=== PATIENT | male | born 1995 | race Caucasian/White ===

== ENCOUNTER → 2016-09-25 | Outpatient (CLI) | payer OTHER ==
--- NOTE | 2016-09-25 15:53 | US ---
EXAMINATION TYPE: US thyroid st tissue head/neck DATE OF EXAM: 09/25/2016 COMPARISON: NONE CLINICAL HISTORY: R22.1 NECK MASS. Palpable area felt by patient on midline neck for 6 months, states it has gotten bigger, patient has zapata so no obvious skin changes seen. No difficulty swallowing. Area felt by wastewater technician and it appears to be part of laryngeal prominence, no obvious other palpable abnormality felt. Scanned midline and just adjacent to area felt and no abnormality seen. IMPRESSION: No sonographic abnormality to correspond with the patient's palpable abnormality.
== END | disposition home or self-care (01) ==
LOC: RADUSWWP 14:55
PROVIDERS: ATTEND Family Medicine
DX: R22.1 Localized swelling, mass and lump, neck (principal)
CPT/HCPCS: 76536

== ENCOUNTER 2021-01-11 20:58 | Inpatient (IN) | payer MEDICAID, OTHER ==
--- NOTE | 2021-01-11 22:34 | ED ---
Psych HPI - General Chief Complaint: Psychiatric Symptoms Stated Complaint: Mental Health Time Seen by Provider: 01/11/21 21:55 Source: patient, family Mode of arrival: ambulatory - History of Present Illness MD Complaint: feels depressed -: unknown Associated Psychiatric Symptoms: depression History of same: Yes Quality: constant Improves With: none Worsens With: none - Related Data Previous Rx's Medication Instructions Recorded Acetaminophen Tab [Tylenol] 650 mg PO Q4HR PRN tab 01/16/21 DULoxetine HCL [Cymbalta] 60 mg PO DAILY 60 Days capsule 01/16/21 Metoprolol Succinate (ER) [Toprol 100 mg PO DAILY 30 Days tablet 01/16/21 XL] Mirtazapine [Remeron] 15 mg PO HS 30 Days tab 01/16/21 amLODIPine [Norvasc] 10 mg PO DAILY 30 Days tab 01/16/21 Allergies Allergy/AdvReac Type Severity Reaction Status Date / Time No Known Allergies Allergy Verified 01/11/21 21:04 Review of Systems ROS Statement: Those systems with pertinent positive or pertinent negative responses have been documented in the HPI. ROS Other: All systems not noted in ROS Statement are negative. Constitutional: Denies: fever, chills Respiratory: Denies: cough, dyspnea Cardiovascular: Denies: chest pain, palpitations Gastrointestinal: Denies: abdominal pain, vomiting Genitourinary: Denies: dysuria, hematuria Musculoskeletal: Denies: back pain Skin: Denies: rash Psychiatric: Reports: depression, suicidal thoughts. Denies: anxiety, auditory hallucinations, visual hallucinations, homicidal thoughts Past Medical History Past Medical History: No Reported History History of Any Multi-Drug Resistant Organisms: None Reported Past Surgical History: No Surgical Hx Reported Past Psychological History: Anxiety, Depression Smoking Status: Current some day smoker Past Alcohol Use History: None Reported Past Drug Use History: Marijuana General Exam Limitations: no limitations General appearance: alert, in no apparent distress Head exam: Present: atraumatic, normocephalic Eye exam: Present: normal appearance. Absent: scleral icterus, conjunctival injection Neck exam: Present: normal inspection Respiratory exam: Present: normal lung sounds bilaterally. Absent: respiratory distress, wheezes, rales, rhonchi, stridor Cardiovascular Exam: Present: regular rate, normal rhythm, normal heart sounds. Absent: systolic murmur, diastolic murmur, rubs, gallop GI/Abdominal exam: Present: soft. Absent: distended, tenderness Extremities exam: Present: normal inspection, normal capillary refill. Absent: pedal edema Back exam: Present: normal inspection Neurological exam: Present: alert Psychiatric exam: Present: depressed, flat affect. Absent: agitated, anxious, manic, homicidal ideation, suicidal ideation Skin exam: Present: warm, dry, intact, normal color. Absent: rash Course Vital Signs 01/11/21 21:00 Temperature 98.9 F Pulse Rate 91 Respiratory 22 Rate Blood Pressure 154/90 O2 Sat by Pulse 98 Oximetry Medical Decision Making - Lab Data Result diagrams: 01/12/21 10:31 01/12/21 10:31 Lab Results 01/11/21 01/12/21 01/12/21 Range/Units 21:06 02:55 03:00 Urine Color Yellow Urine Appearance Clear (Clear) Urine pH 5.5 (5.0-8.0) Ur Specific [place] 1.017 (1.001-1.035) Urine Protein Negative (Negative) Urine Glucose (UA) Negative (Negative) Urine Ketones Negative (Negative) Urine Blood Negative (Negative) Urine Nitrite Negative (Negative) Urine Bilirubin Negative (Negative) Urine Urobilinogen <2.0 (<2.0) mg/dL Ur Leukocyte Esterase Negative (Negative) Urine Opiates Screen Not Detected (NotDetected) Ur Oxycodone Screen Not Detected (NotDetected) Urine Methadone Screen Not Detected (NotDetected) Ur Propoxyphene Screen Not Detected (NotDetected) Ur Barbiturates Screen Not Detected (NotDetected) U Tricyclic Antidepress Not Detected (NotDetected) Ur Phencyclidine Scrn Not Detected (NotDetected) Ur Amphetamines Screen Not Detected (NotDetected) U Methamphetamines Scrn Not Detected (NotDetected) U Benzodiazepines Scrn Not Detected (NotDetected) Urine Cocaine Screen Not Detected (NotDetected) U Marijuana (THC) Screen Detected H (NotDetected) Coronavirus (PCR) Not Detected (Not Detectd) Disposition Clinical Impression: Mood disorder Disposition: ADMITTED IP TO THIS [facility] Condition: Stable Is patient prescribed a controlled substance at d/c from ED?: No
[2021-01-12] MEDS ORDERED: haloperidoL 5 MG TAB PO PRN (03:38)
[2021-01-12] MEDS ORDERED: ACETAMINOPHEN TAB 325 MG TAB PO PRN (03:38)
[2021-01-12] MEDS ORDERED: LORazepam 2 MG/ML INJ IM PRN (03:38)
[2021-01-12] MEDS ORDERED: MAG HYDROX/AL HYDROX/SIMETH 30 ML CUP PO PRN (03:38)
[2021-01-12] MEDS ORDERED: HALOPERIDOL LACTATE 5 MG/ML 1 ML VIAL IM PRN (03:38)
[2021-01-12] MEDS ORDERED: MAGNESIUM HYDROXIDE 2,400 MG/10 ML CUP PO PRN (03:38)
[2021-01-12] MEDS ORDERED: LORazepam 1 MG TAB PO PRN (03:38)
[2021-01-12 03:55] LABS: Amphetamine Screen,Urine Not Detected (NotDetected); Barbiturate Screen,Urine Not Detected (NotDetected); Benzodiazepines Screen,Urine Not Detected (NotDetected); Cocaine Screen,Urine Not Detected (NotDetected); Methadone Screen, Urine Not Detected (NotDetected); Opiate Screen,Urine Not Detected (NotDetected); Oxycodone Screen, Urine Not Detected (NotDetected); Phencyclidine Screen,Urine Not Detected (NotDetected); Tricyclic Antidepressant,Urine Not Detected (NotDetected); Urn Cannabinoid Scrn Detected (NotDetected)
[2021-01-12 04:12] LABS: Appearance,Urine Clear (Clear); Bilirubin,Urine Negative (Negative); Blood,Urine Negative (Negative); Color,Urine Yellow; Glucose,Urine (UA) Negative (Negative); Ketones,Urine Negative (Negative); Leukocyte Esterase,Urine Negative (Negative); Nitrite,Urine Negative (Negative); PH, Urine 5.5 (5.0-8.0); Protein,Urine Negative (Negative); Specific Gravity,Urine 1.017 (1.001-1.035); Urobilinogen,Urine <2.0 mg/dL (<2.0)
[2021-01-12] MEDS: ARIPiprazole 5 MG TAB PO SCH (09:55)
[2021-01-12] MEDS: PARoxetine 20 MG TAB PO SCH (09:55)
[2021-01-12] MEDS: amLODIPine 10 MG TAB PO SCH (09:55)
[2021-01-12] MEDS: NICOTINE 14MG/24HR PATCH TRANSDERM SCH (09:55)
[2021-01-12 10:44] LABS: Basophils % (A) 0 %; Eosinophils # (A) 0.1 k/uL (0-0.7); Eosinophils % (A) 1 %; HCT 52.4 % (39.0-53.0); HGB 17.6 gm/dL (13.0-17.5); Lymphocytes # (A) 1.6 k/uL (1.0-4.8); Lymphocytes % (A) 22 %; MCH 30.5 pg (25.0-35.0); MCHC 33.6 g/dL (31.0-37.0); MCV 90.8 fL (80.0-100.0); Mean Platelet Volume 7.2; Monocytes # (A) 0.5 k/uL (0-1.0); Monocytes % (A) 7 %; Neutrophils # (A) 4.9 k/uL (1.3-7.7); Neutrophils % (A) 68 %; Platelet Count 291 k/uL (150-450); RBC 5.78 m/uL (4.30-5.90); RDW 12.2 % (11.5-15.5); WBC 7.2 k/uL (3.8-10.6)
[2021-01-12 11:16] LABS: ALT 13 U/L (4-49); African American GFR (CKD) >90 (>60 ml/min/1.73 sqM); Albumin 4.8 g/dL (3.5-5.0); Anion Gap 9 mmol/L; Bilirubin, Delta 0.4 mg/dL (0.0-0.2); Bilirubin,Unconjugated 0.6 mg/dL (0.0-1.1); Blood Urea Nitrogen 11 mg/dL (9-20); Carbon Dioxide 25 mmol/L (22-30); Chloride 106 mmol/L (98-107); Glucose 100 mg/dL (74-99); Non-African American GFR(CKD) >90 (>60 ml/min/1.73 sqM); Sodium 140 mmol/L (137-145)
[2021-01-12 11:56] LABS: AST 25 U/L (17-59); Alkaline Phosphatase 53 U/L (38-126); Potassium 4.6 mmol/L (3.5-5.1)
--- NOTE | 2021-01-12 13:29 | HP ---
HISTORY AND PHYSICAL DATE OF SERVICE: 01/12/2021 IDENTIFYING DATA: The patient is a 25-year-old male. He resides with his mother and other family members. He presented to the ED for evaluation. CHIEF COMPLAINT: The patient was depressed. He has panic symptoms. He has alcohol and marijuana issues as well. HISTORY OF PRESENTING ILLNESS: The patient was the only person providing information. He was very limited on what he said. Often when I asked him questions, he would give vague response and then make statements such as, "I don't want to say anymore." At other times he would just seem to drift off in his thoughts and not provide information. He notes that currently he is on a combination of Paxil 40 mg a day, Adderall 20 mg twice a day and BuSpar 10 mg twice a day. He was vague about why he is prescribed Adderall. He did make the statement that sometimes with Adderall, it causes him panic, so it is important that he takes BuSpar when he takes Adderall. He notes that he has been very inconsistent in taking his medications. He suggested that he has been on medications for over a year. He said there had been periods in the past where he took medications consistently and felt that they had helped, though he acknowledges in recent months at least that he has probably been off medications more than on. He notes that he gets a depressed mood that has been getting worse over the last month or more. He seemed to be reluctant to talk about what might be precipitating factors. He acknowledges that he gets anxiety and panic symptoms. He says he especially gets panic "when I am off my medications." He stated that "anxiety drove me to come here." He did not give much more information than that. He seemed to suggest that he has intermittent auditory hallucinations and possibly some paranoid delusions. He did not provide much detail. He noted that he had ups and downs in sleep. Energy, motivation and interest seem to be down. He did not describe any past episodes of manic or hypomanic periods. He seemed to suggest that there are some family stress issues, especially with his older brother, who is 2 years older than him. He said that he has had a stressful relationship with his older brother throughout his growing up. They both are in the house with his mother and there seem to continue to be some struggles in that regard. Patient did not provide much details beyond that. He does have significant substance use issues, as noted below. Patient gave indications that he has significant social anxiety problems. He did not give much for details, though made suggestions at different times that his anxiety gets worse when he is around people, and that in general he tends to isolate. The patient is admitted for further evaluation. SUBSTANCE USE HISTORY: Patient was vague about his substance use though made statements that he drinks more alcohol than he should. He seemed to indicate that he might drink about 5 shots at a time when he drinks and that he drinks on a daily basis. He also notes that he smokes marijuana daily. He indicated that he has ideas that the marijuana is also not good for him, though he did not speak to it much more than that. His urine drug screen was positive just for marijuana. He states that he has not been using other abusive substances. PAST MEDICAL HISTORY: Patient reports no chronic or current general health complaints. FAMILY AND SOCIAL HISTORY: He notes that in his growing up in the home was his mother and father. He had a brother 2 years older who had a different father. Also he had a younger brother 7 years younger by the same parents. His parents split up in his early teens. Currently he is living with his mother and his 2 brothers. He is not working currently. He seemed to indicate that he has a GED. He says his main activity around the house is to try to help with house cleaning and maintenance and then otherwise he spends time doing video games. MENTAL STATUS EXAM: Patient sat with some restlessness. He had fair eye contact. He answered questions with brief responses. He spoke in a soft monotone voice. Sometimes his responses were vague. He did not say much. His affect was flat, his mood depressed. He was significantly distressed. He seemed to indicate having some auditory hallucinations. He was not indicating thoughts of harm at the time of this interview. On cognitive exam, he did not make an effort to answer formal cognitive questions. He was oriented and alert. He gave some information that was about recent events that was consistent with what is documented in the medical record. PHYSICAL EXAMINATION: As per medical consultation. ASSESSMENT: This 25-year-old male has depression and social anxiety struggles. Along with this he has significant complications with substance abuse, namely alcohol and marijuana. He also appears to have quite significant issues with general function. Strengths include his willingness to come to the hospital to seek help. Weakness includes poor insight and awareness plus substance use issues. DIAGNOSES: 1. Major depression with psychotic features. 2. Social anxiety disorder. 3. Alcohol dependence and acute alcohol withdrawal. 4. Marijuana dependence and acute marijuana withdrawal. RECOMMENDATIONS: Patient will be admitted for comprehensive medical, psychiatric and psychosocial evaluation. We will engage the patient in individual and group therapeutic activities. It is noteworthy that the patient has been quite inconsistent with psychotropic medications though seemed to indicate some benefit from medications. I will start the patient on Paxil. I will start 20 mg a day, given that he has been off Paxil probably for at least the last few weeks, I would consider going up to 40 mg perhaps by Thursday. In addition, I will start the patient on Abilify 5 mg a day. The aim of Abilify is to help augment his antidepressant. In addition, Abilify may be beneficial to address some apparent auditory hallucinations that the patient is having. Further, Abilify may provide some benefit to reduce physiologic stress response relating to acute substance withdrawal. Patient does have significant substance use issues as a complication to his mood disorder. It is noteworthy that his functioning out in the world seems to be quite impaired. I reviewed medication issues with the patient, including indications and potential side effects. I made mention of metabolics and movement disorder issues as it relates to Abilify, though I kept the discussion limited due to the patient's lack of much engagement in the conversation. There might be consideration for initiating some family sessions to get further input from the patient's mother especially. We will focus on stabilization and discharge planning. ZEYNEP / NATALIE: [id number] /
--- NOTE | 2021-01-12 14:56 | CONS ---
CONSULTATION CHIEF COMPLAINT: Major depression. HISTORY OF PRESENT ILLNESS: This is the first known admission for this young man who has a long-standing history of depression. He lives with his mother and has been followed as an outpatient for depression and has been fairly stable. Apparently, his condition deteriorated and he came in. REVIEW OF SYSTEMS: He denies headaches, chest pain, abdominal pain, nausea, vomiting, fever, chills, cough, etc. Past medical history, family history and personal and social histories are all otherwise unremarkable or noncontributory. He has currently been on Paxil, amlodipine, Adderall and BuSpar. He is not allergic to any medication. He uses marijuana. PHYSICAL EXAMINATION: Blood pressure is 118/69 with a pulse of 70, respirations of 15 and he is afebrile. In general he appeared to be well developed, well nourished and in no distress. Affect was depressed. Skin color is normal. Head, ears, eyes, nose, mouth and throat were normal. Chest is clear. Cardiac exam is normal. Abdomen is soft, nontender. Extremities: Normal. Neurologically he is intact. IMPRESSION: 1. Major depression. 2. History of hypertension. RECOMMENDATIONS: None at this time. MMODL / IJN: [id number] /
[2021-01-12 17:58] LABS: Chol/HDL Ratio 3.49 Ratio; LDL Cholesterol,Calculated 73.8 mg/dL (0.0-131.0)
[2021-01-13] MEDS: amLODIPine 10 MG TAB PO SCH (09:02)
[2021-01-13] MEDS: NICOTINE 14MG/24HR PATCH TRANSDERM SCH (09:02)
[2021-01-13] MEDS: ARIPiprazole 5 MG TAB PO SCH (09:02)
[2021-01-13] MEDS: PARoxetine 20 MG TAB PO SCH (09:02)
--- NOTE | 2021-01-13 16:33 | PN ---
PROGRESS NOTE DATE OF SERVICE: 01/13/2021. CHIEF COMPLAINT: The patient was depressed. He has panic symptoms. He has alcohol and marijuana issues as well. INTERVAL HISTORY: Patient has been doing fair. He had a quiet day yesterday. It is noteworthy that when I talked to him he almost seemed as if he was in a daze. He could barely get words out and was not able to provide any detail about his situation. He seemed to be quite distant in his relatedness. It is noteworthy that yesterday he attended all of the groups. He slept fairly well last night. Today, he has been up. He continues to attend groups. He comes out on the unit. When I talked to him today, he seemed to be somewhat more relatable. He acknowledges that he has trouble talking about his feelings and issues that might be part of his current situation. On the other hand, he seems to be making reasonable effort in groups. In one of the groups, he stated the following "I do not know if it is the mask or the withdrawal. I just do not feel great." That seemed to be a reasonable opening that he made in spite of some of his difficulties. When I talked to him today he was able to say just a little about his family situation. He said he has talked to his mother and says that she wants him to call on a daily basis. He seemed to be uncertain as to whether in fact he could actually call her on a daily basis. It was unclear what his reference was to that. When I asked him about his older brother, the best he was able to say is that essentially the two live under the same roof, but otherwise are very distant from one another. He had acknowledged that his older brother has been a very difficult person for him to relate to. He tolerates his psychotropic medications. MENTAL STATUS: Patient sat with a little restlessness. He gave fair eye contact he answered questions with brief responses. At times, he was a little vague in things he said. It was noteworthy that he seemed to show a little more emotional response in his facial expressions. His affect was somewhat blunted. His mood reserved. There was a sense that he was at least moderately distressed. It was difficult to assess for thought disorder. He denied thoughts of harm. Cognition was clear. ASSESSMENT: I will continue the current diagnosis and treatment plan. I had restarted the patient on Paxil 20 mg a day. I would look to go up to 40 mg a day fairly soon. I also started the patient on Abilify 5 mg a day to augment his antidepressant. I briefly reviewed medication issues with the patient including concerns relating to Abilify as far as metabolics and movement disorder issues. We will focus on stabilization and discharge planning. ZEYNEP / NATALIE: [id number] /
[2021-01-14] MEDS: ARIPiprazole 5 MG TAB PO SCH (08:33)
[2021-01-14] MEDS: PARoxetine 20 MG TAB PO SCH (08:33)
[2021-01-14] MEDS: amLODIPine 10 MG TAB PO SCH (08:33)
[2021-01-14] MEDS: NICOTINE 14MG/24HR PATCH TRANSDERM SCH (08:34)
[2021-01-14] MEDS ORDERED: LORazepam 1 MG TAB PO PRN (11:03)
[2021-01-14] MEDS: DULoxetine HCL 30 MG CAPSULE.DR PO SCH (11:11)
[2021-01-14] MEDS: LORazepam 1 MG TAB PO PRN ×2 (11:11→16:32)
--- NOTE | 2021-01-14 11:21 | P.PN ---
Progress Note - Text Progress Note Date: 01/14/21 Interval History: Patient was seen [wandering the hallways] and was directable and agreeable to speak with travel writer in the office. Patient explained briefly to travel writer why he came into the hospital stating he was feeling very anxious and depressed and having suicidal thoughts. He spoke about using marijuana and also drinking alcohol excessively. He states that he in the past has had indicated alcohol withdrawals and is feeling like he is having mild withdrawal symptoms at this time. He states that he still feeling very depressed and was fairly isolated and had poor eye contact during conversation. He had fairly poor hygiene and grooming. He states that he is going to some of the groups and trying to participate. He claims that he recently bought a car and is planning to do [employer] eats when he goes back home. At this time patient denies any current suicidal or homical ideations, intent or plan. Patient denies any auditory, visual hallucinations and denies any paranoia or delusions. Patient claims that his anxiety is worst now and was agreeable to be switched onto Cymbalta instead. He states that he has poor sleep at night time. Mental Status Exam: General Appearance: [Patient appears to be stated age is alert, directable, and cooperative.] Poor hygiene and grooming. Poor eye contact. Behavior: [Patient is calmly seated without any agitated behavior.] [place] Speech: Patient's speech is fluent and nonpressured. monotone Mood/Affect: Mood is depressed and anxious, affect is congruent and constricted. Suicidality/Homicidality: Patient denies having any suicidal or homicidal ideation intent or plan. Perceptions: Patient denies any visual hallucinations [and denies any auditory hallucinations] Though content/process: [There is no evidence of any delusional thought content and thought process is linear and goal-directed.] concrete Memory and concentration: AOX3, grossly intact for the purposes of this session Judgment and insight: Improving mildly Assessment Major depressive disorder, recurrent, severe without psychotic features Social anxiety disorder Cannabis use disorder Alcohol use disorder, currently in withdrawal Plan: -Patient continues to meet criteria for inpatient psychiatric admission for symptom stabilization and safety. Patient has signed [adult voluntary form and] [medication consent] and was placed in patient's chart. -Medications: Discontinued Paxil and replaced with Cymbalta 30 mg daily for mood/anxiety. Consider restarting BuSpar tomorrow. Added 25 mg trazodone daily at bedtime for insomnia/mood. Discontinue Abilify. -When necessary Ativan and Haldol for agitation/aggression. -NRT - not needed as patient does not smoke -SW on board for discharge planning. Encouraged the patient to participate in milieu. likely discharge back home in 2-3 days.
[2021-01-14] MEDS: METOPROLOL SUCCINATE (ER) 100 MG TAB.ER.24H PO SCH (13:36)
[2021-01-14] MEDS ORDERED: amLODIPine 10 MG TAB PO SCH (18:15)
--- NOTE | 2021-01-14 19:19 | PN ---
PROGRESS NOTE CHIEF COMPLAINT: Tachycardia. HISTORY OF PRESENT ILLNESS: This gentleman has developed tachycardia. He is on amlodipine. He denies any chest pain or shortness of breath. IMPRESSION: Sinus tachycardia. PLAN: Monitor his pulse rate. If necessary, a beta juan may be added. ZEYNEP / NATALIE: [id number] /
[2021-01-14] MEDS ORDERED: traZODone HCL 50 MG TAB PO SCH (21:00)
[2021-01-15] MEDS: DULoxetine HCL 30 MG CAPSULE.DR PO SCH (09:02)
[2021-01-15] MEDS: METOPROLOL SUCCINATE (ER) 100 MG TAB.ER.24H PO SCH (09:02)
[2021-01-15] MEDS: amLODIPine 10 MG TAB PO SCH (09:02)
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
[2021-01-15] MEDS ORDERED: MIRTAZAPINE 15 MG TAB PO SCH (21:00)
[2021-01-16] MEDS: METOPROLOL SUCCINATE (ER) 100 MG TAB.ER.24H PO SCH (08:26)
[2021-01-16] MEDS: amLODIPine 10 MG TAB PO SCH (08:26)
[2021-01-16 08:40] VITALS: BP 149/86; PULSE 110; RESP 16; TEMP 98.1
[2021-01-16] MEDS ORDERED: DULoxetine HCL 60 MG CAPSULE.DR PO SCH (09:00)
--- NOTE | 2021-01-16 10:01 | P.DS ---
Providers Date of admission: 01/12/21 03:34 Expected date of discharge: 01/16/21 Attending physician: Bhavin Franklin MD Consults: 01/12/21 03:38 Consult Physician Routine Consulting Provider: Arturo Posada Consult Reason/Comments: H & P Do you want consulting provider notified?: Yes, Notify in am Primary care physician: Arturo Posada - Discharge Diagnosis(es) (1) Major depressive disorder without psychotic features Current Visit: Yes Status: Acute Priority: High (2) Social anxiety disorder Current Visit: Yes Status: Acute Priority: High (3) Cannabis use disorder, mild, abuse Current Visit: Yes Status: Acute Priority: Medium (4) Alcohol use disorder Current Visit: Yes Status: Acute Priority: Medium Hospital Course: Admission HPI: Admission note was completed by Dr. Haskins "the patient is a 25-year-old male. He resides with his mother and other family members. He presented to the ED for evaluation. The patient was depressed. He has panic symptoms. He has alcohol and marijuana issues as well. The patient was the only person providing information. He was very limited on what he said. Often when I asked him questions, he would give vague responses and then make statements such as "I don't want to say anymore." At other times he would just seemed to drift off in his thoughts and not providing information. He notes that he currently he is on a combination of Paxil 40 mg a day Adderall 20 mg twice a day and BuSpar 10 mg twice a day. She was vague about why he is prescribed Adderall. He did make the statement that sometimes with Adderall it causes him panic, so it is important that he takes BuSpar when he takes Adderall. He notes that he has been very inconsistent in taking his medications. He suggested that he has been on medications for over a year. He said that there had been periods in the past where he took medications consistently and felt that they helped, though he acknowledges in recent months that least that he has probably been off medications more then on. He notes that he gets depressed mood that he has been getting worse over the last month or more. He seemed to be reluctant to talk about what might be precipitating factors. He acknowledges that he gets anxiety and panic symptoms. He says that he especially gets panic, when I'm off my medications." He stated that he "anxiety drove me to come here." He did not give much more information than that. She seemed to suggest that he has intermittent auditory hallucinations and probably some paranoid delusions. He did not provide much detail. He noted that he had ups and downs in his sleep. Energy, motivation and interest seem to be down. He did not describe any past episodes of manic or hypomanic periods. He seemed to suggest that there are some family stress issues, especially with his older brother who is 2 years older than him. He said that he has had stressful relationship with his older brother throughout his growing up. They both are in the house with his mother and there seemed to continue to be some struggles in that regard. Patient did not provide much details beyond that. He does have significant substance abuse issues as noted below. Patient gave indications that he has significant social anxiety problem. He did not give much detail though made suggestions at different times that his anxiety gets worse then he is around people, and that in general he tends to isolate. The patient is admitted for further evaluation." Hospital course: Upon admission to the unit patient was directable and agreeable to commence elvira atment and signed adult voluntary form . Patient got along well with other patients on the unit and followed unit protocol. Patient was compliant with the medications and denied any side effects throughout hospital course. Patient was started on Paxil initially however due to side effect profile this was d/c and replaced with cymbalta and titrated up to a dose of 60 mg daily for mood/anxiety. Patient was also started on Remeron 15 mg daily at bedtime for insomnia/mood/anxiety. patient was also put on ciwa protocol with prn Ativan for etoh withdrawal. Patient spoke of his stressors and engaged in therapy both group and individual. Patient was also seen by medical team for history and physical exam. Throughout the course of the hospitalization patient gradually improved with regards to mood, anxiety, sleep and returned back to their baseline level of functioning. On the day of discharge patient denied any suicidal or homicidal ideations intent or plan denied any auditory or visual hallucinations. Patient endorsed wanting to live for his health and family. The patient claims that there are guns at his fathers place however they are locked in a safe. Patient denied any paranoia and did not endorse any delusions. Patient does have a significant history of substance abuse and was counseled on abstaining from all substances including alcohol and marijuana. Patient was offered however declined inpatient substance-abuse rehab. Patient chose to follow up with [facility] for [facility] therapy and [facility] treatment as an outpatient. Patient was also counseled on the medications and need for regular compliance and was encouraged to follow-up with their outpatient appointment for mental health and also for primary care. Prior to discharge a family meeting will be arranged by social insurance administrator to answer any questions and ensure safety upon discharge. Mental status exam: General Appearance: Patient appears to be unshaven, stated age is alert, directable, and cooperative. Patient is in no acute distress and has improved hygiene and grooming Behavior: Patient is calmly seated without any agitated behavior. Speech: Patient's speech is fluent and nonpressured. monotone Mood/Affect: Patient reports their mood is "better", affect is congruent and constricted Suicidality/Homicidality: Patient denies having any suicidal or homicidal ideation intent or plan. Perceptions: Patient denies any auditory or visual hallucinations. Though content/process: There is no evidence of any delusional thought content and thought process is linear and goal-directed. future oriented Memory and concentration: AOX3, grossly intact for the purposes of this session. Can spell "WORLD" backwards correctly. Judgment and insight: chronically poor, however has improved with guarded prognosis Impression: Major depressive disorder, severe without psychotic features Social anxiety disorder Cannabis use disorder Alcohol use disorder Plan: -Continue with discharge today as patient has improved and stabilized psychiatrically and is not currently an imminent threat to himself and/or others. Patient will remain at chronically elevated risk for harm to self and/or others due to his impulsivity and polysubstance abuse. -Continue medications: Cymbalta 60 mg daily for mood/anxiety. Remeron 15 mg daily at bedtime for mood/anxiety/insomnia. Patient can have BuSpar restarted as an outpatient if he desires. -Patient was counseled on the need for medication compliance and appropriate follow-up at mental health and also primary care for medical issues. Patient verbalized understanding and agreed. -Social work to arrange for and conduct family meeting to ensure safety upon discharge and answer any questions/concerns. Social work also to arrange for patients follow up appointments with [facility] for psychiatric care along with follow up with primary care provider. -Patient counseled on abstaining from recreational drugs and marijuana and alcohol. Was informed/educated on the adverse effects on their physical and mental health. Patient verbally agreed and understood. Patient was offered substance abuse treatment however declined at this time. -Patient was instructed to return to the hospital or seek immediate medical care if their psychiatric or medical symptoms do worsen or reoccur. Allergies Allergy/AdvReac Type Severity Reaction Status Date / Time No Known Allergies Allergy Verified 01/11/21 21:04 Laboratory Results WBC 7.2 k/uL (3.8-10.6) 01/12/21 10:31 RBC 5.78 m/uL (4.30-5.90) 01/12/21 10:31 Hgb 17.6 gm/dL (13.0-17.5) H 01/12/21 10:31 Hct 52.4 % (39.0-53.0) 01/12/21 10:31 MCV 90.8 fL (80.0-100.0) 01/12/21 10:31 MCH 30.5 pg (25.0-35.0) 01/12/21 10:31 MCHC 33.6 g/dL (31.0-37.0) 01/12/21 10:31 RDW 12.2 % (11.5-15.5) 01/12/21 10:31 Plt Count 291 k/uL (150-450) 01/12/21 10:31 MPV 7.2 01/12/21 10:31 Neutrophils % 68 % 01/12/21 10:31 Lymphocytes % 22 % 01/12/21 10:31 Monocytes % 7 % 01/12/21 10:31 Eosinophils % 1 % 01/12/21 10:31 Basophils % 0 % 01/12/21 10:31 Neutrophils # 4.9 k/uL (1.3-7.7) 01/12/21 10:31 Lymphocytes # 1.6 k/uL (1.0-4.8) 01/12/21 10:31 Monocytes # 0.5 k/uL (0-1.0) 01/12/21 10:31 Eosinophils # 0.1 k/uL (0-0.7) 01/12/21 10:31 Basophils # 0.0 k/uL (0-0.2) 01/12/21 10:31 Sodium 140 mmol/L (137-145) 01/12/21 10:31 Potassium 4.6 mmol/L (3.5-5.1) 01/12/21 10:31 Chloride 106 mmol/L (98-107) 01/12/21 10:31 Carbon Dioxide 25 mmol/L (22-30) 01/12/21 10:31 Anion Gap 9 mmol/L 01/12/21 10:31 BUN 11 mg/dL (9-20) 01/12/21 10:31 Creatinine 0.99 mg/dL (0.66-1.25) 01/12/21 10:31 Est GFR (CKD-EPI)AfAm >90 (>60 ml/min/1.73 sqM) 01/12/21 10:31 Est GFR (CKD-EPI)NonAf >90 (>60 ml/min/1.73 sqM) 01/12/21 10:31 Glucose 100 mg/dL (74-99) H 01/12/21 10:[address] Glu mg/dL 97 01/12/21 10:31 Hemoglobin A1c 5.0 % (4.0-6.0) 01/12/21 10:31 Calcium 10.0 mg/dL (8.4-10.2) 01/12/21 10:31 Total Bilirubin 1.0 mg/dL (0.2-1.3) 01/12/21 10:31 Conjugated Bilirubin 0.0 mg/dL (0.0-0.3) 01/12/21 10:31 Unconjugated Bilirubin 0.6 mg/dL (0.0-1.1) 01/12/21 10:31 Delta Bilirubin 0.4 mg/dL (0.0-0.2) H 01/12/21 10:31 AST 25 U/L (17-59) 01/12/21 10:31 ALT 13 U/L (4-49) 01/12/21 10:31 Alkaline Phosphatase 53 U/L (38-126) 01/12/21 10:31 Total Protein 8.0 g/dL (6.3-8.2) 01/12/21 10:31 Albumin 4.8 g/dL (3.5-5.0) 01/12/21 10:31 Triglycerides 109.00 mg/dL (0.00-149.00) 01/12/21 10:31 Cholesterol 134.00 mg/dL (0.00-200.00) 01/12/21 10:31 LDL Cholesterol, Calc 73.8 mg/dL (0.0-131.0) 01/12/21 10:31 VLDL Cholesterol, Calc 21.80 mg/dL (5.00-40.00) 01/12/21 10:31 HDL Cholesterol 38.40 mg/dL (40.00-60.00) L 01/12/21 10:31 Cholesterol/HDL Ratio 3.49 Ratio 01/12/21 10:31 TSH 1.580 mIU/L (0.465-4.680) 01/12/21 10:31 Free T4 1.530 ng/dL (0.800-1.800) 01/12/21 10:31 Urine Color Yellow 01/12/21 03:00 Urine Appearance Clear (Clear) 01/12/21 03:00 Urine pH 5.5 (5.0-8.0) 01/12/21 03:00 Ur Specific Dana 1.017 (1.001-1.035) 01/12/21 03:00 Urine Protein Negative (Negative) 01/12/21 03:00 Urine Glucose (UA) Negative (Negative) 01/12/21 03:00 Urine Ketones Negative (Negative) 01/12/21 03:00 Urine Blood Negative (Negative) 01/12/21 03:00 Urine Nitrite Negative (Negative) 01/12/21 03:00 Urine Bilirubin Negative (Negative) 01/12/21 03:00 Urine Urobilinogen <2.0 mg/dL (<2.0) 01/12/21 03:00 Ur Leukocyte Esterase Negative (Negative) 01/12/21 03:00 Urine Opiates Screen Not Detected (NotDetected) 01/11/21 21:06 Ur Oxycodone Screen Not Detected (NotDetected) 01/11/21 21:06 Urine Methadone Screen Not Detected (NotDetected) 01/11/21 21:06 Ur Propoxyphene Screen Not Detected (NotDetected) 01/11/21 21:06 Ur Barbiturates Screen Not Detected (NotDetected) 01/11/21 21:06 U Tricyclic Antidepress Not Detected (NotDetected) 01/11/21 21:06 Ur Phencyclidine Scrn Not Detected (NotDetected) 01/11/21 21:06 Ur Amphetamines Screen Not Detected (NotDetected) 01/11/21 21:06 U Methamphetamines Scrn Not Detected (NotDetected) 01/11/21 21:06 U Benzodiazepines Scrn Not Detected (NotDetected) 01/11/21 21:06 Urine Cocaine Screen Not Detected (NotDetected) 01/11/21 21:06 U Marijuana (THC) Screen Detected (NotDetected) H 01/11/21 21:06 Coronavirus (PCR) Not Detected (Not Detectd) 01/12/21 02:55 Vital Signs Temp 98.1 F 01/16/21 08:00 Pulse 110 H 01/16/21 08:00 Resp 16 01/16/21 08:00 BP 149/86 01/16/21 08:00 Pulse Ox 97 01/16/21 08:00 Patient Condition at Discharge: Stable Plan - Discharge Summary Discharge Rx Participant: No New Discharge Prescriptions: New DULoxetine HCL [Cymbalta] 60 mg PO DAILY 60 Days capsule amLODIPine [Norvasc] 10 mg PO DAILY 30 Days tab Mirtazapine [Remeron] 15 mg PO HS 30 Days tab Metoprolol Succinate (ER) [Toprol XL] 100 mg PO DAILY 30 Days tablet Acetaminophen Tab [Tylenol] 650 mg PO Q4HR PRN tab PRN Reason: Pain/Discomfort Discontinued amLODIPine [Norvasc] 10 mg PO DAILY PARoxetine HCL [Paxil] 40 mg PO DAILY Dextroamphetamine/Amphetamine [Adderall] 20 mg PO BID busPIRone HCl [Buspar] 10 mg PO BID Discharge Medication List Acetaminophen Tab [Tylenol] 650 mg PO Q4HR PRN tab 01/16/21 [Rx] DULoxetine HCL [Cymbalta] 60 mg PO DAILY 60 Days capsule 01/16/21 [Rx] Metoprolol Succinate (ER) [Toprol XL] 100 mg PO DAILY 30 Days tablet 01/16/21 [Rx] Mirtazapine [Remeron] 15 mg PO HS 30 Days tab 01/16/21 [Rx] amLODIPine [Norvasc] 10 mg PO DAILY 30 Days tab 01/16/21 [Rx] Follow up Appointment(s)/Referral(s): [facility] [Outside] - 01/29/21 1:30 pm (Isadora George) Arturo Posada MD [Primary Care Provider] - 1-2 days Activity/Diet/Wound Care/Special Instructions: Activity and diet as tolerated. Avoid the use of street drugs and alcohol. Take all medications as prescribed. When you are in need of refills on your medications please contact your medical provider and/or outpatient psychiatrist to have this done. Please go to scheduled outpatient appointment for aftercare treatment. If symptoms return or become worse, call the crisis line at and/or go to the nearest emergency room for evaluation Discharge Disposition: HOME SELF-CARE
== END 2021-01-16 14:16 | disposition home or self-care (01) | DRG 885 ==
LOC: EC 20:58 → 3MHU 01-12 03:34
PROVIDERS: ADMIT Psychiatry & Neurology Psychiatry; ATTEND Psychiatry & Neurology Psychiatry
PROC: HZ2ZZZZ Detoxification Services for Substance Abuse Treatment (ICD-10-PCS; principal; 2021-01-12)
DX: F33.3 Major depressive disorder, recurrent, severe with psychotic symptoms (principal); F10.239 Alcohol dependence with withdrawal, unspecified; R45.851 Suicidal ideations; Z20.822 Contact with and (suspected) exposure to COVID-19; F12.23 Cannabis dependence with withdrawal; R00.0 Tachycardia, unspecified; F17.210 Nicotine dependence, cigarettes, uncomplicated; F40.10 Social phobia, unspecified; G47.00 Insomnia, unspecified; I10 Essential (primary) hypertension; Z79.899 Other long term (current) drug therapy; Z71.41 Alcohol abuse counseling and surveillance of alcoholic; Z71.51 Drug abuse counseling and surveillance of drug abuser
CPT/HCPCS: 80053; 80061; 80306; 81003; 82075; 82248; 83036; 84439; 84443; 85025; 87635; 93005; 99284

== ENCOUNTER 2022-02-24 07:25 | Inpatient (IN) | payer OTHER ==
[2022-02-24] MEDS ORDERED: SODIUM CHLORIDE 0.9% 1,000 ML IV STA (07:33)
--- NOTE | 2022-02-24 08:04 | ED ---
General Adult HPI - General Chief complaint: Alcohol Stated complaint: Withdrawl Time Seen by Provider: 02/24/22 07:27 Source: patient Mode of arrival: ambulatory Limitations: no limitations - History of Present Illness Initial comments: Dictation was produced using [employer] dictation software. please excuse any grammatical, word or spelling errors. Chief Complaint: 26-year-old male presents emergency Department with hallucinations History of Present Illness: Patient's 26-year-old male presents with 1-2 days hallucinations. Series voices that are telling him that his bed. Denies any suicidal or homicidal ideation. Patient allegedly has had several bouts of alcohol intake recently. He has not had any large amounts of alcohol in the last 4 days. Denies any chest pain or shortness of breath. Denies any abdominal pain. Mother at the bedside states that he may have alcohol withdrawals. Mother has history of bipolar disease. Patient does not have a history of psychiatric illness. The ROS documented in this emergency department record has been reviewed and confirmed by me. Those systems with pertinent positive or negative responses have been documented in the HPI. All other systems are other negative and/or noncontributory. PHYSICAL EXAM: General Impression: Alert and oriented x3, not in acute distress, malodorous HEENT: Normocephalic atraumatic, extra-ocular movements intact, pupils equal and reactive to light bilaterally, mucous membranes moist. Cardiovascular: Heart regular rate and rhythm Chest: Able to complete full sentences, no retractions, no tachypnea Abdomen: abdomen soft, non-tender, non-distended, no organomegaly Musculoskeletal: Pulses present and equal in all extremities, no peripheral edema Motor: no focal deficits noted Neurological: CN II-XII grossly intact, no focal motor or sensory deficits noted Skin: Intact with no visualized rashes Psych: Normal affect and mood ED course: 26-year-old male presents to the emergency department for hallucinations. Patient believes that his hallucinations are alcohol withdrawal related. Vital signs upon arrival shows heart rate of 112, rest of vital signs within acceptable limits. Mother reports that she believes patient was drinking large amounts of vodka on a regular basis. Nursing notes and chart review was performed EPS recommends admission. he noted to her that he was suicidal and depressed. Patient is influenza A positive. EPS recommended patient be admitted medically with psychiatry on consult. Was pt. sent in by a medical professional or institution? @No Did you speak to anyone other than the patient for history? @No Did you review nursing and triage notes? @S, agree Were old charts reviewed? @No Differential Diagnosis? @MDM Differential Altered Mental Status: Hypoglycemia, DKA, hypercapnia, ETOH, overdose, CO poisoning, trauma, myxedema coma, HTN encephalopathy, infection, encephalitis, psychosis, intercranial hemorrhage, hepatic encephalopathy, meningitis, CVA this is not meant to be an all-inclusive list EKG interpreted by me (3pts min.)? @ [none] X-rays interpreted by me (1pt min.)? @ [none] CT interpreted by me (1pt min.)? @ [none] U/S interpreted by me (1pt. min.)? @ [none] What testing was considered but not performed? (CT, X-rays, U/S, labs)? Why? @No What meds were considered but not given? Why? @ [none] Did you discuss the management of the patient with other professionals? @Hospitalist Did you reconcile home meds? @ [none] Was smoking cessation discussed for >3mins.? @ [none] Was critical care preformed (if so, how long)? @ [none] Were there social determinants of health that impacted care today? How? (Homelessness, low income, unemployed, alcoholism, drug addiction, transportation, low edu. Level, literacy, decrease access to med. care, senior living, rehab)? @Not applicable Was there de-escalation of care discussed even if they declined? (Discuss DNR or withdrawal of care, Hospice)? @Not applicable What co-morbidities impacted this encounter? (DM, HTN, Smoking, COPD, CAD, Cancer, CVA, Hep., AIDS, mental health diagnosis, sleep apnea, morbid obesity)? @None Was patient admitted / discharged? @Admitted Undiagnosed new problem with uncertain prognosis? @ [none] Drug Therapy requiring intensive monitoring for toxicity (Heparin, Nitro, Insulin, Cardizem)? @ [none] Were any procedures done? @ [none] Diagnosis/symptom? @Suicidal ideation, influenza A Acute, or Chronic, or Acute on Chronic? @Acute Uncomplicated (without systemic symptoms) or Complicated (systemic symptoms)? @Complicated Side effects of treatment? @ [none] Exacerbation, Progression, or Severe Exacerbation] @ [no] Poses a threat to life or bodily function? @ [no] - Related Data Home Medications Medication Instructions Recorded Confirmed Dextroamphetamine/Amphetamine 20 mg PO BID 02/24/22 02/24/22 [Adderall] Ergocalciferol [Vitamin D2 (1250 1,250 mcg PO Q30D 02/24/22 02/24/22 Mcg = 13319 Iu)] PARoxetine HCL [Paxil] 40 mg PO DAILY 02/24/22 02/24/22 Venlafaxine HCl ER [Effexor Xr] 150 mg PO DAILY 02/24/22 02/24/22 busPIRone HCL [Buspar] 30 mg PO TID PRN 02/24/22 02/24/22 Allergies Allergy/AdvReac Type Severity Reaction Status Date / Time No Known Allergies Allergy Verified 02/24/22 07:30 Review of Systems ROS Statement: Those systems with pertinent positive or pertinent negative responses have been documented in the HPI. ROS Other: All systems not noted in ROS Statement are negative. Past Medical History Past Medical History: No Reported History History of Any Multi-Drug Resistant Organisms: None Reported Past Surgical History: No Surgical Hx Reported Past Psychological History: Anxiety, Depression Smoking Status: Current some day smoker Past Alcohol Use History: None Reported, Daily, Heavy Past Drug Use History: Marijuana General Exam Limitations: no limitations Course Vital Signs 02/24/22 07:27 Temperature 98.5 F Pulse Rate 112 H Respiratory 22 Rate Blood Pressure 177/104 O2 Sat by Pulse 99 Oximetry Medical Decision Making - Lab Data Result diagrams: 02/24/22 08:54 02/24/22 10:33 Lab Results 02/24/22 02/24/22 02/24/22 Range/Units 08:54 08:54 10:33 WBC 11.4 H (3.8-10.6) k/uL RBC 4.63 (4.30-5.90) m/uL Hgb 14.5 (13.0-17.5) gm/dL Hct 41.7 (39.0-53.0) % MCV 90.1 (80.0-100.0) fL MCH 31.3 (25.0-35.0) pg MCHC 34.8 (31.0-37.0) g/dL RDW 12.2 (11.5-15.5) % Plt Count 157 (150-450) k/uL MPV 7.6 Neutrophils % 84 % Lymphocytes % 5 % Monocytes % 9 % Eosinophils % 0 % Basophils % 0 % Neutrophils # 9.6 H (1.3-7.7) k/uL Lymphocytes # 0.6 L (1.0-4.8) k/uL Monocytes # 1.0 (0-1.0) k/uL Eosinophils # 0.0 (0-0.7) k/uL Basophils # 0.0 (0-0.2) k/uL Sodium 142 (137-145) mmol/L Potassium 3.5 (3.5-5.1) mmol/L Chloride 110 H (98-107) mmol/L Carbon Dioxide 27 (22-30) mmol/L Anion Gap 5 mmol/L BUN 4 L (9-20) mg/dL Creatinine 0.85 (0.66-1.25) mg/dL Est GFR (CKD-EPI)AfAm >90 (>60 ml/min/1.73 sqM) Est GFR (CKD-EPI)NonAf >90 (>60 ml/min/1.73 sqM) Glucose 103 H (74-99) mg/dL Plasma Lactic Acid Ramirez 1.0 (0.7-2.0) mmol/L Calcium 8.2 L (8.4-10.2) mg/dL Magnesium 1.8 (1.6-2.3) mg/dL Total Bilirubin 0.6 (0.2-1.3) mg/dL AST 21 (17-59) U/L ALT 15 (4-49) U/L Alkaline Phosphatase 38 (38-126) U/L Total Protein 6.2 L (6.3-8.2) g/dL Albumin 3.8 (3.5-5.0) g/dL Serum Alcohol <10 mg/dL Coronavirus (PCR) (Not Detectd) Influenza Type A RNA (Not Detectd) Influenza Type B (PCR) (Not Detectd) 02/24/22 02/24/22 Range/Units 11:46 12:48 WBC (3.8-10.6) k/uL RBC (4.30-5.90) m/uL Hgb (13.0-17.5) gm/dL Hct (39.0-53.0) % MCV (80.0-100.0) fL MCH (25.0-35.0) pg MCHC (31.0-37.0) g/dL RDW (11.5-15.5) % Plt Count (150-450) k/uL MPV Neutrophils % % Lymphocytes % % Monocytes % % Eosinophils % % Basophils % % Neutrophils # (1.3-7.7) k/uL Lymphocytes # (1.0-4.8) k/uL Monocytes # (0-1.0) k/uL Eosinophils # (0-0.7) k/uL Basophils # (0-0.2) k/uL Sodium (137-145) mmol/L Potassium (3.5-5.1) mmol/L Chloride (98-107) mmol/L Carbon Dioxide (22-30) mmol/L Anion Gap mmol/L BUN (9-20) mg/dL Creatinine (0.66-1.25) mg/dL Est GFR (CKD-EPI)AfAm (>60 ml/min/1.73 sqM) Est GFR (CKD-EPI)NonAf (>60 ml/min/1.73 sqM) Glucose (74-99) mg/dL Plasma Lactic Acid Ramirez (0.7-2.0) mmol/L Calcium (8.4-10.2) mg/dL Magnesium (1.6-2.3) mg/dL Total Bilirubin (0.2-1.3) mg/dL AST (17-59) U/L ALT (4-49) U/L Alkaline Phosphatase (38-126) U/L Total Protein (6.3-8.2) g/dL Albumin (3.5-5.0) g/dL Serum Alcohol mg/dL Coronavirus (PCR) Not Detected (Not Detectd) Influenza Type A RNA Detected H (Not Detectd) Influenza Type B (PCR) Not Detected (Not Detectd) Disposition Clinical Impression: Influenza, Suicidal ideations Disposition: ADMITTED IP TO THIS HOSP Condition: Fair Referrals: Arturo Posada MD [Primary Care Provider] - 1-2 days Decision Time: 14:28
[2022-02-24 09:21] LABS: Basophils % (A) 0 %; Eosinophils % (A) 0 %; HCT 41.7 % (39.0-53.0); HGB 14.5 gm/dL (13.0-17.5); Lymphocytes # (A) 0.6 k/uL (1.0-4.8); Lymphocytes % (A) 5 %; MCH 31.3 pg (25.0-35.0); MCHC 34.8 g/dL (31.0-37.0); MCV 90.1 fL (80.0-100.0); Mean Platelet Volume 7.6; Monocytes % (A) 9 %; Neutrophils # (A) 9.6 k/uL (1.3-7.7); Neutrophils % (A) 84 %; Platelet Count 157 k/uL (150-450); RBC 4.63 m/uL (4.30-5.90); RDW 12.2 % (11.5-15.5); WBC 11.4 k/uL (3.8-10.6)
[2022-02-24 11:03] LABS: ALT 15 U/L (4-49); AST 21 U/L (17-59); African American GFR (CKD) >90 (>60 ml/min/1.73 sqM); Albumin 3.8 g/dL (3.5-5.0); Alcohol <10 mg/dL; Alkaline Phosphatase 38 U/L (38-126); Anion Gap 5 mmol/L; Blood Urea Nitrogen 4 mg/dL (9-20); Calcium 8.2 mg/dL (8.4-10.2); Carbon Dioxide 27 mmol/L (22-30); Chloride 110 mmol/L (98-107); Glucose 103 mg/dL (74-99); Magnesium 1.8 mg/dL (1.6-2.3); Non-African American GFR(CKD) >90 (>60 ml/min/1.73 sqM); Potassium 3.5 mmol/L (3.5-5.1); Sodium 142 mmol/L (137-145); Total Bilirubin 0.6 mg/dL (0.2-1.3); Total Protein 6.2 g/dL (6.3-8.2)
[2022-02-24] MEDS ORDERED: NALOXONE 0.4 MG/ML 1 ML VIAL IV PRN (14:25)
--- NOTE | 2022-02-24 19:11 | P.HPIM ---
History of Present Illness H&P Date: 02/24/22 Chief Complaint: Alcohol withdrawal/hallucinations 26-year-old male presents with 1-2 days hallucinations. Series voices that are telling him that his bed; patient believes hallucinations or alcohol related since he has had several bouts of alcohol intake lately. Denies any suicidal or homicidal ideation. Patient allegedly has had several bouts of alcohol intake recently. He has not had any large amounts of alcohol in the last 4 days. Denies any chest pain or shortness of breath. Denies any abdominal pain. Mother at the bedside states that he may have alcohol withdrawals. Mother has history of bipolar disease. Patient does not have a history of psychiatric i llness. Blood work completed in ED reveals him to be 711.4, hemoglobin 14.5 and platelet count of 157, sodium 142, potassium 3.5, BUN/creatinine of 4/0.85 and blood glucose of 120 Patient came back positive for influenza type A Recommended to be admitted to the medical floor for treatment of influenza and then transferred to psych unit on state Review of Systems REVIEW OF SYSTEMS: CONSTITUTIONAL: No fever, no malaise, no fatigue. HEENT: No recent visual problems or hearing problems. Denied any sore throat. CARDIOVASCULAR: No chest pain, orthopnea, PND, no palpitations, no syncope. PULMONARY: No shortness of breath, no cough, no hemoptysis. GASTROINTESTINAL: No diarrhea, no nausea, no vomiting, no abdominal pain. NEUROLOGICAL: No headaches, no weakness, no numbness. HEMATOLOGICAL: Denies any bleeding or petechiae. GENITOURINARY: Denies any burning micturition, frequency, or urgency. MUSCULOSKELETAL/RHEUMATOLOGICAL: Denies any joint pain, swelling, or any muscle pain. ENDOCRINE: Denies any polyuria or polydipsia. The rest of the 14-point review of systems is negative. Past Medical History Past Medical History: No Reported History History of Any Multi-Drug Resistant Organisms: None Reported Past Surgical History: No Surgical Hx Reported Past Psychological History: Anxiety, Depression Smoking Status: Current some day smoker Past Alcohol Use History: None Reported, Daily, Heavy Past Drug Use History: Marijuana Medications and Allergies Home Medications Medication Instructions Recorded Confirmed Type Dextroamphetamine/Amphetamine 20 mg PO BID 02/24/22 02/24/22 History [Adderall] Ergocalciferol [Vitamin D2 (1250 1,250 mcg PO Q30D 02/24/22 02/24/22 History Mcg = 16901 Iu)] PARoxetine HCL [Paxil] 40 mg PO DAILY 02/24/22 02/24/22 History Venlafaxine HCl ER [Effexor Xr] 150 mg PO DAILY 02/24/22 02/24/22 History busPIRone HCL [Buspar] 30 mg PO TID PRN 02/24/22 02/24/22 History Allergies Allergy/AdvReac Type Severity Reaction Status Date / Time No Known Allergies Allergy Verified 02/24/22 07:30 Physical Exam Vitals: Vital Signs Temp Pulse Resp BP Pulse Ox 02/24/22 07:27 98.5 F 112 H 22 177/104 99 Intake and Output 02/24/22 02/24/22 02/24/22 06:59 14:59 22:59 Other: Weight 90.718 kg General Impression: Alert and oriented x3, not in acute distress, malodorous HEENT: Normocephalic atraumatic, extra-ocular movements intact, pupils equal and reactive to light bilaterally, mucous membranes moist. Cardiovascular: Heart regular rate and rhythm Chest: Able to complete full sentences, no retractions, no tachypnea Abdomen: abdomen soft, non-tender, non-distended, no organomegaly Musculoskeletal: Pulses present and equal in all extremities, no peripheral edema Motor: no focal deficits noted Neurological: CN II-XII grossly intact, no focal motor or sensory deficits noted Skin: Intact with no visualized rashes Psych: Normal affect and mood Results CBC & Chem 7: 02/24/22 08:54 02/24/22 10:33 Labs: Abnormal Lab Results - Last 24 Hours (Table) 02/24/22 02/24/22 02/24/22 Range/Units 08:54 10:33 12:48 WBC 11.4 H (3.8-10.6) k/uL Neutrophils # 9.6 H (1.3-7.7) k/uL Lymphocytes # 0.6 L (1.0-4.8) k/uL Chloride 110 H (98-107) mmol/L BUN 4 L (9-20) mg/dL Glucose 103 H (74-99) mg/dL Calcium 8.2 L (8.4-10.2) mg/dL Total Protein 6.2 L (6.3-8.2) g/dL Influenza Type A RNA Detected H (Not Detectd) Assessment and Plan Assessment: 1. Influenza A infection; start patient on Tamiflu 75 mg twice a day IV fluids; Symptomatic treatment; 2. Suicidal ideation/hallucinations; patient has been evaluated by psychiatric technician assistant and is recommended admission to mental health unit once medically stable - Consult psych 3. Depression/anxiety; patient takes Effexor 150 mg daily, Paxil 40 mg daily and BuSpar 30 mg 3 times a day 4. ADHD; continue with home dose of Adderall 20 mg 5. Vitamin D deficiency; continue with vitamin D supplementation DVT prophylaxis; SCDs CODE STATUS; full code
[2022-02-24] MEDS ORDERED: NON FORMULARY DRUG (Dextroamphetamine/Amphetamine [Adderall] 20 MG Tablet) PO SCH (21:00)
[2022-02-24] MEDS: OSELTAMIVIR 75 MG CAP PO SCH (21:31)
[2022-02-24] MEDS: ACETAMINOPHEN TAB 325 MG TAB PO PRN (21:31)
[2022-02-25 08:49] LABS: African American GFR (CKD) 119.9 (60.0-200.0); Anion Gap 12.6 mmol/L (10.00-18.00); BUN/Creat Ratio 5.2 Ratio (12.00-20.00); Blood Urea Nitrogen 5.2 mg/dL (9.0-27.0); Calcium 9.4 mg/dL (8.7-10.3); Carbon Dioxide 28.4 mmol/L (20.0-27.5); Non-African American GFR(CKD) 103.4 (60.0-200.0); Potassium 3.9 mmol/L (3.5-5.5)
[2022-02-25] MEDS ORDERED: PARoxetine 20 MG TAB PO SCH (09:00)
[2022-02-25] MEDS: OSELTAMIVIR 75 MG CAP PO SCH ×2 (09:02→20:15)
[2022-02-25] MEDS: VENLAFAXINE HCL ER 150 MG CAP PO SCH (09:03)
--- NOTE | 2022-02-25 12:52 | P.CN ---
Psychiatric Consult - . Consult date: 02/25/22 Consult:: 02/25/22 11:39 IDENTIFYING DATA: This patient is a 26 yo male who currently lives with his mother and brother in a house, unemployed, no kids. REASON FOR REFERRAL: Psychiatry was consulted for "suicidal" HISTORY OF PRESENT ILLNESS: The patient presented to the hospital yesterday complaining of the past couple of days having hallucinations and hearing negative voices.Patient also endorsed drinking more etoh lately. He states that he did have a hx of withdrawal sx. patient was positive for influenza . BAL was negative. Patients RN claims that patient is calm, minimal withdrawal sx and not endorsing SI. Patient currently had a patient safety manager at the bedside today. Patient was sleeping and agreeable to speak with policy writer sales. Patient states that he was "panicking" and had a bad headache before he came to the ER he states that he has also been hearing voices for the past several months claiming "that Cortney been gone for a long time" and theyre trying to convince him of that. He states that his mood is a bit better today but claims that he has been depressed. admits to ongoing anxiety. Claims that he has not been compliant with his meds at home. he states that his sleep has been on and off. his appetite has also been poor. he does admit to mild paranoia at times. At this time patient denies any current suicidal or homical ideations, intent or plan. Patient contracts to safety. Patient denies any auditory, visual hallucinations and denies any paranoia or delusions. Patients admits to using alcohol and drinking approx 5 shots/day,no cigarettes, smokes marijuana daily.ession and social anxiety]. [Patient was previously on cymbalta, paxil, effexor, buspar and remeron.] [Patients last admission to [facility] was in 12/2020. [Patient denies any psychiatric outpatient follow-up and gets his psych meds from Dr Posada his PCP.] [Patient denies any history of suicide attempts in the past.] PAST MEDICAL HISTORY: [denies]. ALLERGIES: as per EMR. CHEMICAL DEPENDENCY HISTORY: as per HPI. FAMILY PSYCHIATRIC/SUBSTANCE USE HISTORY: Mother has bipolar SOCIAL HISTORY: Patient was born and raised in [place] and he completed high school, no legal troubles. He is unemployed, no kids, unmarried. lives with his mother and brother in a house. MENTAL STATUS EXAM: General Appearance: Patient appears to be slightly discheveled in appearance, stated age is alert, constricted. attempts to cooperate. Patient appears to have [marginal] hygiene and grooming wearing hospital gown with [poor] eye contact. Behavior: [Patient is calmly lying in bed without any agitated behavior.] cooperative. Speech: Patient's speech is fluent and nonpressured. monotone, concrete. soft tone. Mood/Affect: Patient reports their mood is "[depressed]", affect is congruent and constricted. Suicidality/Homicidality: Patient denies having any suicidal or homicidal ideation intent or plan. Perceptions: Patient denies any visual hallucinations [and denies any auditory hallucinations] Though content/process: There is no evidence of any delusional thought content and thought process is linear and goal-directed. concrete. Memory and concentration: AOX3, grossly intact for the purposes of this session. Can spell "WORLD" backwards Judgment and insight: fair. IMPRESSIONS: []Major depressive disorder with psychotic features social anxiety disorder cannabis use disorder alcohol use disorder nicotine dependence PLAN: -At this time will continue following along to see if patient truly needs inpatient psych vs outpatient tx -Would recommend the following medication changes/additions: []d/c paxil and continue iwth effexor 150 mg daily for mood/anxiety. added remeron 15 mg qhs for insomnia/mood, buspar 20 mg bid for anxiety. [-CIWA protocol with PRN Ativan for alcohol withdrawal. Continue to monitor vital signs.] [-Can discontinue 1:1 sitter at this time as patient is not currently an imminent threat to themselves] [-production manufacturing worker to provide patient with outpatient mental health/psychiatry resources for appropriate follow up upon discharge] [-Faculty Support Coordinator spoke with patient about substance abuse and the harmful effects on medical and mental health, patient verbally understood and agreed.] [-production manufacturing worker to provide patient substance use treatment resources including AA/NA meetings in the community.] [-production manufacturing worker to provide patient with access line number to call for inpatient substance rehab] [-Communicated plan to patient's nurse] [-Will continue to follow along] tomorrow. -Please contact with any questions. 02/25/22 12:37
[2022-02-25] MEDS ORDERED: guaiFENesin-DM 100-10MG/5ML 10 ML CUP PO PRN (13:22)
[2022-02-25] MEDS: busPIRone HCl 10 MG TAB PO SCH ×2 (14:12→20:15)
[2022-02-25] MEDS: ACETAMINOPHEN TAB 325 MG TAB PO PRN (14:24)
[2022-02-25] MEDS ORDERED: MIRTAZAPINE 15 MG TAB PO SCH (21:00)
--- NOTE | 2022-02-25 21:21 | PN ---
PROGRESS NOTE CHIEF COMPLAINT: Hallucinations and depression. HISTORY OF PRESENT ILLNESS: This gentleman has been fairly stable. He is slightly nauseated. He also has dry cough. PHYSICAL EXAMINATION: CHEST: Clear. CARDIAC: Normal. ABDOMEN: Soft, nontender. VITAL SIGNS: Normal. IMPRESSION: 1. Depression. 2. Hallucinations. 3. Suicidal personality. 4. Bronchitis. PLAN: Current program and await for psychiatric evaluation. MMODL / IJN: [id number] /
[2022-02-26] MEDS: OSELTAMIVIR 75 MG CAP PO SCH ×2 (08:03→20:26)
[2022-02-26] MEDS: busPIRone HCl 10 MG TAB PO SCH ×2 (08:03→20:52)
[2022-02-26] MEDS: VENLAFAXINE HCL ER 150 MG CAP PO SCH (08:04)
[2022-02-26] MEDS ORDERED: traZODone HCL 50 MG TAB PO PRN (13:10)
--- NOTE | 2022-02-26 13:13 | P.PN ---
Progress Note - Text Progress Note Date: 02/26/22 Interval History: Patient was seen today for psychiatric follow-up regarding patient's depression and anxiety. Patient's nurse offered no significant complaints and patient has been taking his medications, not endorsing suicidal thoughts. Patient was seen today sitting up in bed watching television. He claims that he tried to eat some of his lunch however continues to have a poor appetite. States that his mood is mildly improved since yesterday however continues to endorse some depression and also anxiety. He continues to be fairly concrete and constricted in his affect. Today he was complaining less about somatic symptoms/physical symptoms related to his influenza. We spoke about his medications and he was agreeable to have increased. States that he only slept about 2-3 hours last night. At this time patient denies any suicidal or homical ideations, intent or plan. Patient denies any auditory, visual hallucinations and denies any paranoia or delusions. Patient denies any side effects from the medications and has been compliant with meds. Mental Status Exam: General Appearance: Patient appears to be slightly discheveled in appearance, stated age is alert, constricted. attempts to cooperate. Patient appears to have marginal hygiene and grooming wearing hospital gown with poor eye contact. Behavior: Patient is calmly lying in bed without any agitated behavior. cooperative. Speech: Patient's speech is fluent and nonpressured. monotone, concrete. soft tone, improving mildly. Mood/Affect: Patient reports their mood is "depressed and anxious"however is improving mildly, affect is congruent and constricted. Suicidality/Homicidality: Patient denies having any suicidal or homicidal ideation intent or plan. Perceptions: Patient denies any visual hallucinations and denies any auditory hallucinations Though content/process: There is no evidence of any delusional thought content and thought process is linear and goal-directed. concrete. Memory and concentration: AOX3, grossly intact for the purposes of this session Judgment and insight: fair. IMPRESSIONS: Major depressive disorder with psychotic features social anxiety disorder cannabis use disorder alcohol use disorder nicotine dependence PLAN: -At this time will continue following along to see if patient truly needs inpatient psych vs outpatient tx -Would recommend the following medication changes/additions: Increase effexor 225 mg daily for mood/anxiety. Increase remeron 30 mg qhs for insomnia/mood, increase buspar 30 mg bid for anxiety. I added trazodone 50 mg daily at bedtime when necessary for insomnia. -CIWA protocol with PRN Ativan for alcohol withdrawal. Continue to monitor vital signs. -casting house worker to provide patient with outpatient mental health/psychiatry resources for appropriate follow up upon discharge -Bar Captain spoke with patient about substance abuse and the harmful effects on medical and mental health, patient verbally understood and agreed. -casting house worker to provide patient substance use treatment resources including AA/NA meetings in the community. -casting house worker to provide patient with access line number to call for inpatient substance rehab -Communicated plan to patient's nurse -Will continue to follow along tomorrow. -Please contact with any questions.
[2022-02-26] MEDS ORDERED: MIRTAZAPINE 15 MG TAB PO SCH (21:00)
--- NOTE | 2022-02-26 22:09 | PN ---
PROGRESS NOTE CHIEF COMPLAINT: Hallucinations, major depression, and influenza. HISTORY OF PRESENT ILLNESS: This gentleman seems to be doing fairly well. Vital signs are normal, and laboratory studies were unremarkable. He is being seen by Psychiatry. It is not clear if he is going to be moved to the psych floor or not. Psychiatry indicates that they have not made a decision as to whether or not he needs inpatient care at this time. Otherwise, the patient could go home. We will wait for clearance from Psychiatry. PHYSICAL EXAMINATION: CHEST: Clear. CARDIAC: Normal. ABDOMEN: Soft and nontender. IMPRESSION: 1. Major depression. 2. Alcoholism. 3. Hallucinations probably related to alcohol withdrawal and delirium tremens. 4. Influenza. PLAN: Await clearance from Psychiatry before he is discharged. MMBLAKEL / IJN: [id number] /
[2022-02-27] MEDS: busPIRone HCl 10 MG TAB PO SCH (08:59)
[2022-02-27] MEDS: OSELTAMIVIR 75 MG CAP PO SCH (08:59)
[2022-02-27] MEDS ORDERED: VENLAFAXINE HCL ER 75 MG CAP PO SCH (09:00)
--- NOTE | 2022-02-27 13:22 | P.PN ---
Progress Note - Text Progress Note Date: 02/27/22 Interval History: Patient was seen today for psychiatric follow-up regarding patient's depression and anxiety. Patient appears to be doing better today and have a brighter affect. He states that he slept better last night about 5 or 6 hours. He states that he did not take the trazodone. Patient claims that his mood is gradually improving since yesterday and also claims to have any improvement in his anxiety. He claims that he also has been having an increase in his appetite as well and finish his breakfast and lunch. He states that he is looking forward to being with his dog and his family at home. He claims that he wants to try to follow up with a therapist and also a psychiatrist. He was agreeable to continue taking his medications at home. He denies any access to guns or weapons. He was more future oriented today. At this time patient denies any suicidal or homical ideations, intent or plan. Patient denies any auditory, visual hallucinations and denies any paranoia or delusions. Patient denies any side effects from the medications and has been compliant with meds. Mental Status Exam: General Appearance: Patient appears to be improving appearance, stated age is alert, more directable today. attempts to cooperate. Patient appears to have marginal hygiene and grooming wearing hospital gown with improving eye contact. Behavior: Patient is calmly lying in bed without any agitated behavior. cooperative. Speech: Patient's speech is fluent and nonpressured. concrete. soft tone, improving mildly. Mood/Affect: Patient reports their mood is improving, affect is congruent and more brighter today. Suicidality/Homicidality: Patient denies having any suicidal or homicidal ideation intent or plan. Perceptions: Patient denies any visual hallucinations and denies any auditory hallucinations Though content/process: There is no evidence of any delusional thought content and thought process is linear and goal-directed. concrete. More future oriented. Memory and concentration: AOX3, grossly intact for the purposes of this session Judgment and insight: fair. IMPRESSIONS: Major depressive disorder with psychotic features social anxiety disorder cannabis use disorder alcohol use disorder nicotine dependence PLAN: -At this time patient does not meet criteria for inpatient psychiatric admission. -Would recommend the following medication changes/additions: effexor 225 mg daily for mood/anxiety. remeron 30 mg qhs for insomnia/mood, buspar 30 mg bid for anxiety. -textile worker to provide patient with outpatient mental health/psychiatry resources for appropriate follow up upon discharge -Car Installations Supervisor spoke with patient about substance abuse and the harmful effects on medical and mental health, patient verbally understood and agreed. -textile worker to provide patient substance use treatment resources including AA/NA meetings in the community. -Communicated plan to patient's nurse -At this time psychiatry will sign off. -Please contact with any questions.
[2022-02-27 14:57] VITALS: BP 145/90; PULSE 78; RESP 16; TEMP 98.3
[2022-03-03] MEDS ORDERED: ERGOCALCIFEROL 1,250 MCG (50,000 IU) CAPSULE PO SCH (09:00)
== END 2022-02-27 17:49 | disposition home or self-care (01) | DRG 194 ==
LOC: EC 07:25 → 4SSUR 14:25 → 6NMEDSUR 17:51
PROVIDERS: ADMIT Family Medicine; ATTEND Family Medicine
DX: J10.1 Influenza due to other identified influenza virus with other respiratory manifestations (principal); F10.231 Alcohol dependence with withdrawal delirium; F32.3 Major depressive disorder, single episode, severe with psychotic features; R45.851 Suicidal ideations; F90.9 Attention-deficit hyperactivity disorder, unspecified type; E55.9 Vitamin D deficiency, unspecified; F17.210 Nicotine dependence, cigarettes, uncomplicated; F40.10 Social phobia, unspecified; J44.9 Chronic obstructive pulmonary disease, unspecified; F41.8 Other specified anxiety disorders; Z71.6 Tobacco abuse counseling; F12.10 Cannabis abuse, uncomplicated; Y90.0 Blood alcohol level of less than 20 mg/100 ml; Z79.899 Other long term (current) drug therapy; Z71.41 Alcohol abuse counseling and surveillance of alcoholic; Z71.51 Drug abuse counseling and surveillance of drug abuser
CPT/HCPCS: 36415; 80048; 80053; 80320; 82075; 83605; 83735; 85025; 87502; 87635; 87651; 93005; 96360; 96361; 99285

== ENCOUNTER 2022-03-04 17:40 | Emergency (ER) | payer OTHER ==
[2022-03-04 17:49] VITALS: TEMP 98
[2022-03-04] MEDS ORDERED: LORazepam 2 MG/ML INJ IM PRN (17:58)
--- NOTE | 2022-03-04 18:32 | ED ---
Psych HPI - General Source: patient Mode of arrival: ambulatory <Ishaan Zhaoianna - Last Filed: 03/05/22 00:01> - General Source: RN notes reviewed, old records reviewed - History of Present Illness MD Complaint: altered mental status Associated Psychiatric Symptoms: racing thoughts Quality: intermittent Improves With: none Worsens With: none Context: not taking psychiatric medications Associated Symptoms: denies other symptoms Treatments Prior to Arrival: placed on mental health hold If Self Harm: admits thoughts of self harm <Jono Vaughn - Last Filed: 03/05/22 00:53> - General Chief Complaint: Psychiatric Symptoms Stated Complaint: mental health Time Seen by Provider: 03/04/22 17:50 - History of Present Illness Initial Comments: Patient is 26-year-old male who presents for psychiatric evaluation. Patient presents having a panic attack. Patient was recently admitted for alcohol withdrawal seizure. He was evaluated by psych services for suicidal ideation and did not meet inpatient criteria. He was discharged yesterday, started on Effexor 225 mg daily, Remeron 30 mg at night, BuSpar 30 mg twice a day PRN. According to mother, patient did retrieve his medication and started it-symptoms seemed to get better until today when patient started having a panic attack. Patient very worked up to evaluation, has suicidal ideation without plan. No homicidal ideation. Admits to drinking 1 shot today otherwise denies recent alcohol use. Mother lives with him and agrees. Admits to marijuana use. No visual or auditory hallucinations. No fever, chills, abdominal pain, nausea, vomiting. (Renea Zhao) - Related Data Home Medications Medication Instructions Recorded Confirmed Dextroamphetamine/Amphetamine 20 mg PO BID 02/24/22 02/24/22 [Adderall] Ergocalciferol [Vitamin D2 (1250 1,250 mcg PO Q30D 02/24/22 02/24/22 Mcg = 80649 Iu)] busPIRone HCL [Buspar] 30 mg PO TID PRN 02/24/22 02/24/22 Previous Rx's Medication Instructions Recorded Mirtazapine [Remeron] 30 mg PO HS #30 tab 02/27/22 Venlafaxine HCl ER [Effexor XR] 225 mg PO DAILY #30 cap 02/27/22 Allergies Allergy/AdvReac Type Severity Reaction Status Date / Time No Known Allergies Allergy Verified 03/04/22 17:49 Review of Systems ROS Other: All systems not noted in ROS Statement are negative. <Renea Zhao - Last Filed: 03/05/22 00:01> ROS Other: All systems not noted in ROS Statement are negative. <Jono Vaughn - Last Filed: 03/05/22 00:53> ROS Statement: Those systems with pertinent positive or pertinent negative responses have been documented in the HPI. Past Medical History Past Medical History: Hypertension Additional Past Medical History / Comment(s): was told by doctor when he was younger he may have asthma History of Any Multi-Drug Resistant Organisms: None Reported Past Surgical History: No Surgical Hx Reported Past Psychological History: Anxiety, Depression Smoking Status: Current some day smoker, Vaper Past Alcohol Use History: None Reported, Daily, Heavy Past Drug Use History: Marijuana <Renea Zhao - Last Filed: 03/05/22 00:01> General Exam Limitations: no limitations General appearance: alert Head exam: Present: atraumatic, normocephalic, normal inspection Respiratory exam: Present: normal lung sounds bilaterally. Absent: respiratory distress, wheezes, rales, rhonchi, stridor Cardiovascular Exam: Present: normal rhythm, tachycardia, normal heart sounds. Absent: regular rate, systolic murmur, diastolic murmur, rubs, gallop, clicks Neurological exam: Present: alert, oriented X3, CN II-XII intact Psychiatric exam: Present: normal affect, anxious, suicidal ideation. Absent: normal mood Skin exam: Present: warm, dry, intact, normal color. Absent: rash <Renea Zhao - Last Filed: 03/05/22 00:01> General appearance: alert, in no apparent distress, anxious Head exam: Present: atraumatic, normocephalic, normal inspection Eye exam: Present: normal appearance, PERRL, EOMI. Absent: scleral icterus, conjunctival injection, periorbital swelling ENT exam: Present: normal exam, mucous membranes moist Neck exam: Present: normal inspection. Absent: tenderness, meningismus, lymphadenopathy Respiratory exam: Present: normal lung sounds bilaterally. Absent: respiratory distress, wheezes, rales, rhonchi, stridor Cardiovascular Exam: Present: regular rate, normal rhythm, normal heart sounds. Absent: systolic murmur, diastolic murmur, rubs, gallop, clicks GI/Abdominal exam: Present: soft, normal bowel sounds. Absent: distended, tenderness, guarding, rebound, rigid Extremities exam: Present: normal inspection, full ROM, normal capillary refill. Absent: tenderness, pedal edema, joint swelling, calf tenderness Back exam: Present: normal inspection Neurological exam: Present: alert, oriented X3, CN II-XII intact Psychiatric exam: Present: normal affect, normal mood Skin exam: Present: warm, dry, intact, normal color. Absent: rash <Jono Vaughn - Last Filed: 03/05/22 00:53> Course <Jono Vaughn - Last Filed: 03/05/22 00:53> Vital Signs 03/04/22 03/04/22 03/04/22 17:45 18:34 21:21 Temperature 98 F Pulse Rate 170 H 140 H Pulse Rate [ 112 H [employer] ] Respiratory 18 30 H Rate Blood Pressure 117/70 O2 Sat by Pulse 99 100 Oximetry 03/04/22 23:47 Temperature Pulse Rate 95 Pulse Rate [ [employer] ] Respiratory 16 Rate Blood Pressure 131/73 O2 Sat by Pulse 97 Oximetry - Reevaluation(s) Reevaluation #1: 03/05/22 00:52 Medical clear for psychiatric evaluation (Jono Vaughn) Reevaluation #2: 03/05/22 00:52 Seen eval by psychiatry here in the ER (Jono Vaughn) Medical Decision Making <Renea Zhao - Last Filed: 03/05/22 00:01> <Jono Vaughn - Last Filed: 03/05/22 00:53> - Medical Decision Making Was pt. sent in by a medical professional or institution (, PA, [employer], urgent care, hospital, or shelter...) When possible be specific @ -[No] Did you speak to anyone other than the patient for history (EMS, parent, family, police, friend...)? What history was obtained from this source @ -[No] Did you review nursing and triage notes (agree or disagree)? Why? @ -[I reviewed and agree with nursing and triage notes] Were old charts reviewed (outside hosp., previous admission, EMS record, old EKG, old radiological studies, urgent care reports/EKG's, shelter records)? Report findings @ -Yes, patient recently admitted for alcohol withdrawal with seizure. Evaluated by psych-did not meet inpatient criteria Differential Diagnosis (chest pain, altered mental status, abdominal pain women, abdominal pain men, vaginal bleeding, weakness, fever, dyspnea, syncope, headache, dizziness, GI bleed, back pain, seizure, CVA, palpatations, mental health)? @ -panic attack, TABITHA, anxiety EKG interpreted by me (3pts min.). @ -[As above] X-rays interpreted by me (1pt min.). @ -[None done] CT interpreted by me (1pt min.). @ -[None done] U/S interpreted by me (1pt. min.). @ -[None done] What testing was considered but not performed or refused? (CT, X-rays, U/S, labs)? Why? @ -[None] What meds were considered but not given or refused? Why? @ -[None] Did you discuss the management of the patient with other professionals (professionals i.e. , PA, [employer], lab, RT, psych nurse, outreach and education social worker, soda flaker, teacher, information security officer, case assistant)? Give summary @ -[No] Was smoking cessation discussed for >3mins.? @ -[No] Was critical care preformed (if so, how long)? @ -[No] Were there social determinants of health that impacted care today? How? (Homelessness, low income, unemployed, alcoholism, drug addiction, transportation, low edu. Level, literacy, decrease access to med. care, fpc, rehab)? @ -[No] Was there de-escalation of care discussed even if they declined (Discuss DNR or withdrawal of care, Hospice)? DNR status @ -[No] What co-morbidities impacted this encounter? (DM, HTN, Smoking, COPD, CAD, Cancer, CVA, ARF, Chemo, Hep., AIDS, mental health diagnosis, sleep apnea, morbid obesity)? @ -[None] Was patient admitted / discharged? Hospital course, mention meds given and route, prescriptions, significant lab abnormalities, going to OR and other pertinent info. @ -This is a 26-year-old presenting psychiatric evaluation. Patient having significant panic attack. He does not appear to be under the influence of alcohol or withdrawing from alcohol. Serum alcohol < 10. Undiagnosed new problem with uncertain prognosis? @ -[No] Drug Therapy requiring intensive monitoring for toxicity (Heparin, Nitro, Insulin, Cardizem)? @ -[No] Were any procedures done? @ -[No] Diagnosis/symptom? @ -[default] Acute, or Chronic, or Acute on Chronic? @ -[default] Uncomplicated (without systemic symptoms) or Complicated (systemic symptoms)? @ -[default] Side effects of treatment? @ -[No] Exacerbation, Progression, or Severe Exacerbation? @ -[No] Poses a threat to life or bodily function? How? (Chest pain, USA, DC, pneumonia, PE, COPD, DKA, ARF, appy, cholecystitis, CVA, Diverticulitis, Homicidal, Suicidal, threat to staff... and all critical care pts) @ -[No] (Renea Zhao) 26 male will be discharged home seen and evaluated here in the ER by psychiatry (Jono Vaughn) - Lab Data Lab Results 03/04/22 03/04/22 Range/Units 18:34 20:19 Urine Color Colorless Urine Appearance Clear (Clear) Urine pH 7.5 (5.0-8.0) Ur Specific [place] 1.004 (1.001-1.035) Urine Protein Negative (Negative) Urine Glucose (UA) Negative (Negative) Urine Ketones Negative (Negative) Urine Blood Negative (Negative) Urine Nitrite Negative (Negative) Urine Bilirubin Negative (Negative) Urine Urobilinogen <2.0 (<2.0) mg/dL Ur Leukocyte Esterase Negative (Negative) Urine Opiates Screen Not Detected (NotDetected) Ur Oxycodone Screen Not Detected (NotDetected) Urine Methadone Screen Not Detected (NotDetected) Ur Propoxyphene Screen Not Detected (NotDetected) Ur Barbiturates Screen Not Detected (NotDetected) U Tricyclic Antidepress Not Detected (NotDetected) Ur Phencyclidine Scrn Not Detected (NotDetected) Ur Amphetamines Screen Not Detected (NotDetected) U Methamphetamines Scrn Not Detected (NotDetected) U Benzodiazepines Scrn Not Detected (NotDetected) Urine Cocaine Screen Not Detected (NotDetected) U Marijuana (THC) Screen Detected H (NotDetected) Serum Alcohol <10 mg/dL Disposition <Renea Zhao - Last Filed: 03/05/22 00:01> Is patient prescribed a controlled substance at d/c from ED?: No <Jono Vaughn - Last Filed: 03/05/22 00:53> Clinical Impression: Mood disorder Disposition: HOME SELF-CARE Condition: Fair Instructions (If sedation given, give patient instructions): Mood Disorders (ED) Referrals: Arturo Posada MD [Primary Care Provider] - 1-2 days
[2022-03-04 20:28] LABS: Appearance,Urine Clear (Clear); Bilirubin,Urine Negative (Negative); Blood,Urine Negative (Negative); Color,Urine Colorless; Glucose,Urine (UA) Negative (Negative); Ketones,Urine Negative (Negative); Leukocyte Esterase,Urine Negative (Negative); Nitrite,Urine Negative (Negative); PH, Urine 7.5 (5.0-8.0); Protein,Urine Negative (Negative); Specific Gravity,Urine 1.004 (1.001-1.035); Urobilinogen,Urine <2.0 mg/dL (<2.0)
[2022-03-04 20:37] LABS: Amphetamine Screen,Urine Not Detected (NotDetected); Barbiturate Screen,Urine Not Detected (NotDetected); Benzodiazepines Screen,Urine Not Detected (NotDetected); Cocaine Screen,Urine Not Detected (NotDetected); Methadone Screen, Urine Not Detected (NotDetected); Opiate Screen,Urine Not Detected (NotDetected); Oxycodone Screen, Urine Not Detected (NotDetected); Phencyclidine Screen,Urine Not Detected (NotDetected); Tricyclic Antidepressant,Urine Not Detected (NotDetected); Urn Cannabinoid Scrn Detected (NotDetected)
[2022-03-04 23:48] VITALS: BP 131/73; PULSE 95; RESP 16
== END 2022-03-05 01:40 | disposition home or self-care (01) ==
LOC: EC 17:40
DX: F39 Unspecified mood [affective] disorder (principal); I10 Essential (primary) hypertension; F41.9 Anxiety disorder, unspecified; F32.A Depression, unspecified; F17.200 Nicotine dependence, unspecified, uncomplicated; F12.90 Cannabis use, unspecified, uncomplicated; Z79.899 Other long term (current) drug therapy
CPT/HCPCS: 99285; 36415; 81003; 80306; 96372; G0480; J2060; 80320